=== PATIENT | male | born 1950 | race Caucasian/White ===

== ENCOUNTER 2020-03-20 08:46 | Outpatient (CLI) | payer MEDICARE, SELFPAY ==
--- NOTE | 2020-03-20 13:02 | PFTS_ITS ---
Date of Study:03/20/20 Date of Dictation: MECHANICS: Forced vital capacity (FVC) is normal. Forced expiratory volume in one second (FEV1) is reduced. FEV1/FVC is . FLOW VOLUME LOOP: Reduced flow at all lung volumes with scooping. LUNG VOLUMES: Total lung capacity (TLC) is normal. Residual volume (RV) is normal. DIFFUSING CAPACITY FOR CARBON MONOXIDE: Normal. INTERPRETATION: The pulmonary function tests are consistent with moderate obstruction. Lung volumes are normal. Gas exchange (DLCO) is normal. MTDD
== END 2020-03-20 08:47 | disposition home or self-care (01) ==
LOC: RT 08:53
PROVIDERS: PCP Nurse Practitioner Family; Visit Provider Internal Medicine Cardiovascular Disease
DX: Z79.899 Other long term (current) drug therapy (principal)
CPT/HCPCS: 94010; 94726; 94729

== ENCOUNTER 2021-02-13 17:11 | Emergency (ER) | payer MEDICARE, SELFPAY ==
[2021-02-13 17:24] VITALS: BP 149/111; PULSE 138; RESP 18; TEMP 36.8; O2SAT 99; BMI 24.4
--- NOTE | 2021-02-13 17:39 | XRR_ITS ---
PROCEDURE INFORMATION: Exam: XR Chest Exam date and time: 02/13/2021 5:47 PM Age: 70 years old Clinical indication: Other: Irregular heart rate; Prior surgery; Surgery type: Stent; Additional info: Reduced breath sounds a fib rvr TECHNIQUE: Imaging protocol: XR of the chest. Views: 1 view. COMPARISON: No relevant prior studies available. FINDINGS: Lungs: Unremarkable. No consolidation. Pleural spaces: Unremarkable. No pleural effusion. No pneumothorax. Heart/Mediastinum: The heart size is upper normal. Bones/joints: Degenerative shoulders. XR/XR chest 1V portable [id number] IMPRESSION: 1. No acute findings.
[2021-02-13 18:22] VITALS: BP 133/98; PULSE 115; RESP 17; O2SAT 98
[2021-02-13 18:32] LABS: Basophils # 0.1 10^3/uL (0.0-0.1); Basophils % 0.9 %; Eosinophils # 0.2 10^3/uL (0.0-0.8); Eosinophils % 3.1 %; Hematocrit 39.2 % (42.0-52.0); Hemoglobin 12.4 g/dL (11.7-16.6); Lymphocytes # 2.4 10^3/uL (0.8-4.8); Lymphocytes % 34.6 %; Mean Corpuscular HGB Conc 31.6 g/dL (30.0-36.0); Mean Corpuscular Hemoglobin 27.7 pg (28.0-34.0); Mean Corpuscular Volume 87.7 fL (80-94); Mean Platelet Volume 10.8 fL (7.4-10.4); Monocytes # 0.5 10^3/uL (0.2-0.9); Monocytes % 7.3 %; Neutrophils # 3.69 10^3/uL (1.8-7.7); Nucleated Red Blood Cells % 0 %; Platelet Count 193 10^3/cmm (130-400); Red Blood Count 4.47 10^6/uL (4.1-5.3); Red Cell Distribution Width 15.2 % (12.1-15.1); White Blood Count 6.8 10^3/uL (4.0-10.0)
[2021-02-13 18:43] LABS: D Dimer 0.66 ug/mIFEU (0-0.59)
[2021-02-13 18:54] LABS: Troponin(5th) Baseline 14 ng/L (0-15)
[2021-02-13 19:01] LABS: Alanine Aminotransferase 13 U/L (0-41); Albumin Level 4.2 g/dL (3.5-5.2); Alkaline Phosphatase 60 IU/L (40-130); Aspartate Amino Transferase 12 U/L (0-40); Blood Urea Nitrogen 19 mg/dL (8-23); Calcium 8.9 mg/dL (8.5-10.5); Carbon Dioxide 27 mmol/L (22-29); Chloride 103 mmol/L (98-107); Creatinine Clr Calc Pharmacy 93.5222; Glucose 83 mg/dL (65-115); NT Pro B Type Natriuretic Pept 1941 pg/mL (0-125); Osmolality Calculated 291 mOsm/kg (285-295); Sodium 140 mmol/L (136-145); Total Bilirubin 0.5 mg/dL (0.15-1.2); Total Protein 6.2 g/dL (6.6-8.7)
--- NOTE | 2021-02-13 19:26 | ECG_ITS ---
[facility] Test Date: 2021-02-13 Pat Name: Gabriel Worthy Department: Room: Gender: Male Assignment Clerk: : 1950 Requested By: Robbi Lucero Order Number: [id number] Misti MD: Ashok Kelly M.D. Measurements Intervals [place] Rate: 117 P: TN: QRS: 47 QRSD: 103 T: 39 QT: 316 QTc: 442 Interpretive Statements ATRIAL FIBRILLATION WITH RAPID VENTRICULAR RESPONSE LOW QRS VOLTAGE IN PRECORDIAL LEADS [QRS DEFLECTION < 1.0 mV IN CHEST LEADS] No previous ECG available for comparison Electronically Signed On 02-14-2021 19:00:33 CDT by Ashok Kelly M.D. [id number]
[2021-02-13 19:54] VITALS: PULSE 95; RESP 16; O2SAT 98
--- NOTE | 2021-02-13 19:54 | CTR_ITS ---
PROCEDURE INFORMATION: Exam: CTA Chest With Contrast Exam date and time: 02/13/2021 7:55 PM Age: 70 years old Clinical indication: Abnormal findings; Abnormal diagnostic tests; Elevated d-dimer; Other: High hr and pulse; Prior surgery; Surgery type: Stents; Additional info: A fib rvr, elevated d dimer, cp TECHNIQUE: Imaging protocol: Computed tomographic angiography of the chest with contrast. 3D rendering (Not supervised by radiologist): MIP and/or 3D reconstructed images were created by the technologist. Radiation optimization: All CT scans at this facility use at least one of these dose optimization techniques: automated exposure control; mA and/or kV adjustment per patient size (includes targeted exams where dose is matched to clinical indication); or iterative reconstruction. Contrast material: OMNI 350; Contrast volume: 81 ml; Contrast route: INTRAVENOUS (IV); COMPARISON: CR (CHEST, ) 02/13/2021 5:48 PM RADIATION DOSE METRICS: Total DLP (mGy-cm): 605.89 FINDINGS: Pulmonary arteries: Normal. No pulmonary emboli. Aorta: 4.4 cm aneurysm of the ascending thoracic aorta. No visible dissection, although contrast bolus is suboptimal for evaluating the aorta. Thyroid: 1.6 cm left thyroid nodule. Ultrasound follow-up is recommended. Lungs: Calcified granulomas in the right upper and left lower lobes. 3 mm left upper lobe nodule. Mild atelectasis in the lower lobes. The lungs otherwise are clear. Pleural spaces: Unremarkable. No pneumothorax. No pleural effusion. Heart: Coronary artery calcifications. Mild cardiomegaly. Lymph nodes: Calcified mediastinal and hilar lymph nodes. Gallbladder and bile ducts: Cholelithiasis. Pancreas: Scattered calcifications in the pancreatic body and tail, consistent with chronic calcific pancreatitis. Spleen: Calcified granulomas in the spleen. Kidneys and ureters: Fluid density cysts in the right kidney, Hounsfield units less than 20. No follow-up imaging is recommended. Bones/joints: Unremarkable. No acute fracture. Soft tissues: Unremarkable. CT/CT angio chest PE protcl [id number] IMPRESSION: 1. No evidence for pulmonary embolus. 2. 4.4 cm ascending thoracic aortic aneurysm. 3. 1.6 cm left thyroid nodule. Ultrasound follow-up is recommended. 4. 3 mm left upper lobe nodule. For patients at low risk (minimal or absent history of smoking and of other known risk factors), no routine follow-up is indicated. For patients at high risk (history of smoking or of other known risk factors), consider optional CT Chest at 12 months. (Reference: Jean) References: Jean Jimenez et al. Guidelines for Management of Incidental Pulmonary Nodules Detected on CT Images: From the Fleischner Society 2017. Radiology. 2017;284(1):228-243. COMMENTS: 1. Consistent with the [employer]'s Incidental Findings Committee white paper (J Am Caro Radiol 2015): In patients aged 35 years and older with an incidental thyroid nodule equal to or greater than 1.[address], MRI or extrathyroidal US, further evaluation with dedicated thyroid US is recommended for patients with normal life expectancy and without comorbidities. For smaller nodules without suspicious features, no further evaluation or follow up is recommended. 2. Consistent with the [employer]'s Incidental Findings Committee white paper (J Am Caro Radiol 2018): Any incidental renal lesion less than 1 cm or classified as too small to characterize, or any incidental cystic renal lesion characterized as simple-appearing, is likely benign. No follow-up imaging is recommended for these lesions per consensus recommendations based on imaging criteria. Radiation Dose CTDIVOL = (mGy): DLP = 605.89 (mGy-cm)
[2021-02-13 20:05] LABS: Blood Urine Trace (Negative); Glucose Urine UA Norm (Normal); Ketones Urine 1+ (Negative); Protein Urine Neg (Negative); Specific Gravity, Urine 1.015 (1.005-1.030); Urine Appearance Clear (CLEAR); Urine Color Yellow (Yellow); pH Urine 6.5 (5-7)
[2021-02-13 20:06] LABS: Add Urine Microscopic? YES; Bilirubin Urine Neg (Negative); Leukocyte Esterase Urine Negative (Negative); Nitrate Urine Negative (Negative); RBC Urine 0-4 /hpf (0-2); Urobilinogen Urine 4 mg/dL (Negative)
[2021-02-13] MEDS: iohexol 350 mg/mL 100 mL Btl IV (20:06)
[2021-02-13 20:07] LABS: Add Urine Culture? No; Bacteria Urine 1+ /hpf; Squamous Epithelial Cell Urine 0-4 /hpf (0-5)
[2021-02-13 20:47] LABS: Troponin 5 2HR 16.75 ng/L (0-15); Troponin 5 2HR Delta 2.75 ABS# (0-10)
[2021-02-13 20:53] VITALS: PULSE 85; RESP 14; O2SAT 98
--- NOTE | 2021-02-13 22:50 | ED_ITS ---
HPI - Chest Pain General: Chief Complaint: Chest Pain Stated Complaint: Irregular Pulse/BP, Sent from [facility] Time Seen by Provider: 02/13/21 17:32 History of Present Illness: HPI narrative: The patient is a 70-year-old male with past medical history atrial fibrillation who comes to the ER complaining of increased heart rate for the past 7 to 10 days. He says 2 weeks ago he quit taking his blood pressure medications because his blood pressure was low at 80/40 on one time that he checked it. 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 He comes in today A. fib and RVR with a rate of 120s. He was complaining of chest pain and shortness of breath initially although after rate control his symptoms have resolved. Onset (ago): day(s) (7) Timing of current episode: episodic Onset: during rest and during exertion Pain location: substernal Severity: mild Exacerbating factors: exertion Associated symptoms: Reports palpitations; Deny abdominal pain or dyspnea Review of Systems General: Reports: 10 or more systems reviewed and unremarkable except in HPI and below Const: Denies: fatigue Eyes: Denies: change in vision, blurry vision or eye redness ENMT: Denies: throat pain, swelling of lips/tongue, ear or mastoid pain or nasal congestion Card: Reports: chest pain and palpitations; Denies: irregular heart rhythm, edema, dyspnea on exertion or orthopnea Resp: Denies: dyspnea, productive cough or non-productive cough GI: Denies: abdominal pain, diarrhea or GI cramping : Denies: flank pain, urinary frequency or urinary urgency Musc: Denies: neck pain, back pain, extremity pain, joint pain, joint redness, limited range of motion or muscle weakness Skin/Breast: Denies: rash, pruritus, erythema, skin pain or skin tenderness Neuro: Denies: headache(s), numbness in extremities, weakness in extremities, sensory changes, difficulty walking, dizziness, confusion or Slurred speech present Psych: Denies: anxiety or depression Endo: Denies: polyuria All/Imm: Denies: urticaria, throat swelling or tongue swelling PFSH ED PFSH: Medical History (Updated 02/13/21 @ 22:55 by Tim Ewing MD) Afib CAD (coronary artery disease) Dysuria Gross hematuria Surgical History History of heart artery stent Hx of bilateral cataract extraction Family History Father , AT AGE 69 PROSTATE CANCER Cancer Mother , AT AGE 85 CAD (coronary artery disease) Social History Smoking and tobacco status: former smoker Alcohol intake: current Alcohol intake frequency: holidays/special occasions only Adopted: No Caregiver/support person: No Lives independently: No Household members: spouse Marital status: Current occupational status: retired Physical Exam Const: COMMON NORMALS: no acute distress, average body habitus, patient oriented x3, no limitations, healthy appearing, alert and well nourished GENERAL APPEARANCE: cooperative, comfortable, well kempt and well developed ORIENTATION/CONSCIOUSNESS: Yes awake, Yes oriented to person, Yes oriented to place and Yes oriented to time HENMT: COMMON NORMALS: normocephalic, external ears normal and Normal external nose present HEAD & SCALP: normal to inspection and normocephalic NOSE: Normal external nose present EXTERNAL EAR: Yes external ears normal MOUTH: Normal oral and palatal mucosa present THROAT: posterior oropharynx normal Eye: COMMON NORMALS: Equal, round and reactive pupils present and EOMs intact bilaterally GENERAL EYE: appearance normal, both eyes and all related structures PUPIL: Yes Equal, round and reactive pupils present Neck/C-Spine: COMMON NORMALS: full ROM, no lymphadenopathy, no meningeal signs and no JVD GENERAL: Yes normal visual inspection Lymph: LYMPHATIC: no lymphadenopathy noted Chest: COMMONS NORMALS: normal inspection of the chest and normal palpation of entire chest wall Resp: COMMON NORMALS: normal respiratory effort, No retractions, No use of accessory muscles, clear to auscultation bilaterally and percussion normal EFFORT & INSPECTION: Yes able to speak in complete sentences AUSCULTATION: clear to auscultation bilaterally PERCUSSION: percussion normal Cardio: COMMON NORMALS: no JVD, regular rate, S1 normal heart sound present, S2 normal heart sound present and Peripheral pulses 2+ throughout RATE: regular rate and tachycardic RHYTHM: abnormal rhythm irregularly irregular HEART SOUNDS: S1 normal heart sound present and S2 normal heart sound present PERIPHERAL PULSES: Peripheral pulses 2+ throughout OTHER: A. fib RVR rate 120s. GI: COMMON NORMALS: Normal to inspection, nondistended, normoactive bowel sounds present, Soft to palpation, non-tender and no masses INSPECTION: Yes normal to inspection PALPATION: Yes Soft to palpation : COMMON NORMALS: Yes no CVA tenderness BLADDER/KIDNEY EXAM: Yes no CVA tenderness Back/Pelvis: COMMON NORMALS: no CVA tenderness, thoracic and lumbar spine normal to inspection, no thoracic nor lumbar tenderness and thoraco-lumbar ROM normal Extremity: COMMON NORMALS: normal to inspection, full ROM, capillary refill normal, no joint enlargement and no pedal edema GENERAL: Yes normal exam except as noted Neuro: COMMON NORMALS: patient oriented x3, CN's II-XII intact bilaterally, moves all extremities, no focal motor deficits, no sensory deficits noted and gait normal SENSORIUM/ORIENTATION: Yes alert, Yes oriented to person, Yes oriented to place and Yes oriented to time MENINGEAL SIGNS: Yes no meningeal signs Psych: COMMON NORMALS: mental status grossly normal, Normal thought process present, cooperative, normal affect and speech normal APPEARANCE: Yes well kempt ATTITUDE: Yes calm SPEECH: Yes normal speech THOUGHT PROCESS: Normal thought process present Skin: COMMON NORMALS: no rashes or lesions noted GENERAL SKIN EXAM: no rashes or lesions noted Course Vital Signs: Vital signs: Vital Signs Temperature 98.2 F 02/13/21 17:24 Pulse Rate 85 02/13/21 20:53 Respiratory Rate 14 02/13/21 20:53 Blood Pressure 133/98 02/13/21 18:22 Pulse Oximetry 98 02/13/21 20:53 MDM - Chest Pain MDM Narrative: Medical decision making narrative: The patient came to the ER complaining of tachycardia and he was in A. fib RVR rate 120s. 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 He wants to get set up here locally. I placed a case management referral for cardiology, Dr. Luciano as he has an incidental aortic aneurysm, and primary care physician within a week. He was given metoprolol and Cardizem with good improvement of his rate control and resolution of his symptoms. Discussed with Dr. Kelly who recommended holding his other blood pressure medications as he has been doing however starting the carvedilol at 12.5 mg twice daily and following up in a few days. The patient is amenable to this plan. Also discussed his thyroid nodule and recommended he get an ultrasound from his primary care physician. ER with worsening symptoms at any time. Lab Data: Labs: Lab Results 02/13/21 02/13/21 02/13/21 Range/Units 18:20 18:20 18:20 WBC 6.8 (4.0-10.0) 10^3/ uL RBC 4.47 (4.1-5.3) 10^6/u L Hgb 12.4 (11.7-16.6) g/dL Hct 39.2 L (42.0-52.0) % MCV 87.7 (80-94) fL MCH 27.7 L (28.0-34.0) pg MCHC 31.6 (30.0-36.0) g/dL RDW 15.2 H (12.1-15.1) % Plt Count 193 (130-400) 10^3/c mm MPV 10.8 H (7.4-10.4) fL Neut % (Auto) 54.0 % Lymph % (Auto) 34.6 % Republic % (Auto) 7.3 % Eos % (Auto) 3.1 % Baso % (Auto) 0.9 % Neut # (Auto) 3.69 (1.8-7.7) 10^3/u L Lymph # (Auto) 2.4 (0.8-4.8) 10^3/u L Republic # (Auto) 0.5 (0.2-0.9) 10^3/u L Eos # (Auto) 0.2 (0.0-0.8) 10^3/u L Baso # (Auto) 0.1 (0.0-0.1) 10^3/u L Nucleated RBC % (a uto) 0 % Nucleated RBCs # 0.0 /100WBC D-Dimer (0-0.59) ug/mIFE U Sodium 140 (136-145) mmol/L Potassium 4.0 (3.5-5.1) mmol/L Chloride 103 (98-107) mmol/L Carbon Dioxide 27 (22-29) mmol/L Anion Gap 14.0 (5-19) BUN 19 (8-23) mg/dL Creatinine 0.8 (0.7-1.2) mg/dL GFR Calculation Not Reportable Glucose 83 (65-115) mg/dL Calculated Osmolal ity 291 (285-295) mOsm/k g Calcium 8.9 (8.5-10.5) mg/dL Total Bilirubin 0.5 (0.15-1.2) mg/dL AST 12 (0-40) U/L ALT 13 (0-41) U/L Alkaline Phosphata se 60 (40-130) IU/L Troponin T Baselin e 14 (0-15) ng/L Troponin T 120 Min aleyda (0-15) ng/L Delta Troponin T (0-10) ABS# NT-Pro-B Natriuret Pep 1941 H (0-125) pg/mL Total Protein 6.2 L (6.6-8.7) g/dL Albumin 4.2 (3.5-5.2) g/dL Globulin 2.0 (1.3-4.6) g/dL Urine Color (Yellow) Urine Appearance (CLEAR) Urine pH (5-7) Ur Specific Gravit y (1.005-1.030) Urine Protein (Negative) Urine Glucose (UA) (Normal) Urine Ketones (Negative) Urine Blood (Negative) Urine Nitrate (Negative) Urine Bilirubin (Negative) Urine Urobilinogen (Negative) mg/dL Ur Leukocyte Angela ase (Negative) Urine RBC (0-2) /hpf Urine WBC (0-5) /hpf Ur Squamous Epith Cells (0-5) /hpf Amorphous Sediment Urine Bacteria (NONE) /hpf 02/13/21 02/13/21 02/13/21 Range/Units 18:20 19:48 20:22 WBC (4.0-10.0) 10^3/ uL RBC (4.1-5.3) 10^6/u L Hgb (11.7-16.6) g/dL Hct (42.0-52.0) % MCV (80-94) fL MCH (28.0-34.0) pg MCHC (30.0-36.0) g/dL RDW (12.1-15.1) % Plt Count (130-400) 10^3/c mm MPV (7.4-10.4) fL Neut % (Auto) % Lymph % (Auto) % Republic % (Auto) % Eos % (Auto) % Baso % (Auto) % Neut # (Auto) (1.8-7.7) 10^3/u L Lymph # (Auto) (0.8-4.8) 10^3/u L Republic # (Auto) (0.2-0.9) 10^3/u L Eos # (Auto) (0.0-0.8) 10^3/u L Baso # (Auto) (0.0-0.1) 10^3/u L Nucleated RBC % (a uto) % Nucleated RBCs # /100WBC D-Dimer 0.66 H (0-0.59) ug/mIFE U Sodium (136-145) mmol/L Potassium (3.5-5.1) mmol/L Chloride (98-107) mmol/L Carbon Dioxide (22-29) mmol/L Anion Gap (5-19) BUN (8-23) mg/dL Creatinine (0.7-1.2) mg/dL GFR Calculation Glucose (65-115) mg/dL Calculated Osmolal ity (285-295) mOsm/k g Calcium (8.5-10.5) mg/dL Total Bilirubin (0.15-1.2) mg/dL AST (0-40) U/L ALT (0-41) U/L Alkaline Phosphata se (40-130) IU/L Troponin T Baselin e (0-15) ng/L Troponin T 120 Min aleyda 16.75 H (0-15) ng/L Delta Troponin T 2.75 (0-10) ABS# NT-Pro-B Natriuret Pep (0-125) pg/mL Total Protein (6.6-8.7) g/dL Albumin (3.5-5.2) g/dL Globulin (1.3-4.6) g/dL Urine Color Yellow (Yellow) Urine Appearance Clear (CLEAR) Urine pH 6.5 (5-7) Ur Specific Gravit y 1.015 (1.005-1.030) Urine Protein Neg (Negative) Urine Glucose (UA) Norm (Normal) Urine Ketones 1+ H (Negative) Urine Blood Trace H (Negative) Urine Nitrate Negative (Negative) Urine Bilirubin Neg (Negative) Urine Urobilinogen 4 H (Negative) mg/dL Ur Leukocyte Angela ase Negative (Negative) Urine RBC 0-4 H (0-2) /hpf Urine WBC None (0-5) /hpf Ur Squamous Epith Cells 0-4 H (0-5) /hpf Amorphous Sediment Not Reportable Urine Bacteria 1+ H (NONE) /hpf Discharge Plan Discharge Patient Disposition: Home Clinical Impression: Atrial fibrillation, Aortic aneurysm, Thyroid nodule Condition: Stable Prescriptions: New carvedilol 12.5 mg tablet 12.5 mg PO BID Qty: 30 RF: 0 Held hydrochlorothiazide 25 mg tablet 25 mg PO DAILY RF: 0 Hold Instructions: Resume on 02/27/21. See your primary doctor to discuss resuming this medication lisinopril 20 mg tablet 20 mg PO DAILY@0600 RF: 0 Hold Instructions: Resume on 02/27/21. see your primary doctor to discuss resuming this medication Discontinued carvedilol 25 mg tablet 25 mg PO BID@0600,1800 RF: 0 No Action saw palmetto 500 mg capsule 500 mg PO BID@0600,1800 RF: 0 gabapentin 300 mg capsule 300 mg PO BID@0800,1800 RF: 0 glimepiride 2 mg tablet 2 mg PO BID@0600,1800 RF: 0 levothyroxine 25 mcg capsule 25 mcg PO DAILY@0600 RF: 0 rivaroxaban 20 mg tablet 20 mg PO DAILY@0600 RF: 0 ascorbate calcium (vitamin C) 500 mg tablet 500 mg PO DAILY@0600 RF: 0 cholecalciferol (vitamin D3) 50 mcg (2,000 unit) capsule 50 mcg PO DAILY@0600 RF: 0 metformin 500 mg tablet 500 mg PO DAILY@0600 RF: 0 aspirin [Adult Low Dose Aspirin] 81 mg tablet,delayed release (DR/EC) 81 mg PO DAILY@0600 RF: 0 atorvastatin 40 mg tablet 40 mg PO DAILY@0600 RF: 0 latanoprost 0.005 % drops 1 drp ophthalmic (eye) DAILY RF: 0 Uriniozinc 1 tab PO DAILY@0600 RF: 0 zinc 1 tab PO DAILY@0600 RF: 0 Discharge Orders: Discharge ED (Routine); Ordered 02/13/21 Ordered By: Tim Ewing Referrals: Clotilde Fabian [Primary Care Provider] - Discharge Diet: Advance as tolerated Discharge Activity: Resume usual activity Patient Instructions: Atrial Fibrillation (ED), Opioid Safety Activity Restrictions/Additional Instructions: You have not been taking her blood pressure medications nor carvedilol for the past couple weeks and your heart rate has increased. Please see your medications and only take the carvedilol at a reduced dose. I have placed a case management referral to help you get into a electrician elevator maintenance and primary care physician. Please discuss your blood pressure again at that time and see if you need more medications to control your blood pressure and heart rate. Return to the ER at anytime with increased heart rate, chest pain, or shortness of breath. You also have a thyroid nodule. I have placed a case management referral to help you get an appointment with the above doctors and your primary care doctor because you need an ultrasound of this. Rarely it can be a cancer though it is likely just a nodule. Please follow-up and have this investigated. Also have your primary care doctor check your TSH at that time to make sure your thyroid medication is at appropriate levels within a week. Coding Level of Care Code ED Residence Hall Director for Pricila Crocker
[2021-02-13 22:54] VITALS: BP 149/113; PULSE 94; RESP 15; O2SAT 99
--- NOTE | 2021-02-14 10:04 | DCPLANNER ---
manager web application had message to schedule a couple of follow up appointments for patient. manager web application needs to schedule a follow up appointment for patient with heart care, cardiology and Dr. Luciano. Also a follow up appointment for patient with primary care physician. manager web application spoke with patient, to confirm who he sees for primary care and asked if patient would like for case coordinator to schedule follow up appointment. Patient stated that he has an appointment with his primary care physician today at 1:00. manager web application called [facility], spoke with Maday, gave clinic patients information. A follow up appointment was scheduled for patient with cardiology, Dr. Barnes, for March 05 at 1:[address] Barnes at the [facility]. After this visit patient can see Dr. Barnes at the [facility]. manager web application called patient and gave the patient the appointment information. manager web application also spoke with Maday about a follow up with Dr. Luciano for patient. manager web application was told that patients information would be printed and given to Dr. Quinones nurse, Ann, for review. manager web application will check on appointment, clinic will call patient with appointment information.
--- NOTE | 2021-02-20 11:20 | DCPLANNER ---
Patient has a follow up appointment scheduled for Monday, February 22, 2021 at 8:[address] Luciano. Clinic will call patient with appointment information.
--- NOTE | 2021-04-11 07:42 | DCPLANNER ---
Patient had a follow up appointment scheduled for 03.05.21 and 02.22.21 both at [facility], one with Dr. Butler and one with Dr. Adler - patient attended both appointments.
== END 2021-02-13 22:55 | disposition home or self-care (01) ==
PROVIDERS: Family Medicine; Emergency Provider Family Medicine; PCP Nurse Practitioner Family
DX: I48.91 Unspecified atrial fibrillation (principal); I71.9 Aortic aneurysm of unspecified site, without rupture; E04.1 Nontoxic single thyroid nodule; Z79.82 Long term (current) use of aspirin; Z79.84 Long term (current) use of oral hypoglycemic drugs; I25.10 Atherosclerotic heart disease of native coronary artery without angina pectoris; Z87.891 Personal history of nicotine dependence
CPT/HCPCS: 36415; 71045; 71275; 80048; 80053; 81001; 83880; 84484; 85025; 85378; 93005; 96374; 96375; 99284; J3490; Q9967

== ENCOUNTER 2021-04-08 09:30 | Outpatient (CLI) | payer MEDICARE, SELFPAY ==
--- NOTE | 2021-04-08 10:15 | USCV_ITS ---
Deacon Gabriel Age: 71 Gender: M : 1950 Exam Date: 04/08/2021 10:44 Ordering Phys: Ariel Luciano MD (Andy) ([email or web address]) Technologist: Slava Martines Exam Location: [facility] Indication: DYSPNEA BP: 137 / 102 HR: 95 Rhythm: Sinus Technical Quality: Good MEASUREMENTS (Male / Female) Normal Values 2D ECHO LV Diastolic Diameter PLAX 4.3 cm 4.2 - 5.9 / 3.9 - 5.3 cm LV Systolic Diameter PLAX 2.8 cm IVS Diastolic Thickness 1.3 cm 0.6 - 1.0 / 0.6 - 0.9 cm IVS Systolic Thickness 2.0 cm LVPW Diastolic Thickness 1.0 cm 0.6 - 1.0 / 0.6 - 0.9 cm LVPW Systolic Thickness 1.2 cm LVOT Diameter 2.1 cm LV Ejection Fraction 2D Teich 63.9 % LV Ejection Fraction MOD 2C 38.7 % LV Ejection Fraction 2C AL 39.6 % LA Diameter 3.6 cm LA Width 3.1 cm LA Height 5.9 cm RA Width 4.1 cm RA Height 5.3 cm Aorta at Sinotubular Diameter 3.1 cm M-MODE LV Diastolic Diameter MM 5.4 cm 4.2 - 5.9 / 3.9 - 5.3 cm LV Systolic Diameter MM 3.8 cm LV Ejection Fraction MM Teich 57.2 % IVS Diastolic Thickness MM 1.2 cm 0.6 - 1.0 / 0.6 - 0.9 cm IVS Systolic Thickness MM 1.4 cm LVPW Diastolic Thickness MM 0.8 cm 0.6 - 1.0 / 0.6 - 0.9 cm LVPW Systolic Thickness MM 1.3 cm Aortic Annulus Diameter 3.4 cm LA Ao Ratio MM 1.1 MV E Point Septal Separation 1.0 cm DOPPLER AV Peak Velocity 135.0 cm/s LVOT Peak Velocity 58.0 cm/s AV Area Cont Eq vti 1.9 cm squared AV Area Cont Eq pk 1.4 cm squared MV Peak Velocity 522.0 cm/s MV Area PHT 5.9 cm squared Mitral E to A Ratio 2.0 MV E' Velocity 85.0 cm/s Mitral E to LV E' Septal Ratio 10.6 TR Peak Velocity 201.0 cm/s TR Peak Gradient 16.2 mmHg Right Atrial Pressure 3.0 mmHg Pulmonary Artery Systolic Pressu 19.2 mmHg RV Acceleration Time 0.1 s RV Ejection Time 0.3 s RV AcT/ET 0.3 FINDINGS Left Ventricle Normal left ventricular size, systolic function and wall thickness, with no regional wall motion abnormalities. Left ventricular ejection fraction is estimated at 55-60 %. Rhythm precludes evaluation of diastolic function. Right Ventricle Normal right ventricular size and systolic function. Right ventricular systolic pressure 19.2 mmHg. Right Atrium Normal right atrial size. Right atrial pressure estimated at 3 mmHg. Left Atrium Mildly increased left atrial size. Mitral Valve Mildly thickened mitral valve. No mitral valve stenosis. Mild to moderate mitral valve regurgitation. Aortic Valve Moderately thickened trileaflet aortic valve. No aortic valve stenosis. Trace aortic valve regurgitation. Tricuspid Valve Structurally normal tricuspid valve. Mild tricuspid valve regurgitation. Pulmonic Valve Pulmonic valve not well visualized. No pulmonary valve stenosis. Trace pulmonary valve regurgitation. Pericardium No pericardial effusion. Aorta Normal size aortic root and proximal ascending aorta. Normal- sized inferior vena cava with normal respiratory variation. CONCLUSIONS 1. Normal left ventricular size, systolic function and wall thickness, with no regional wall motion abnormalities. Left ventricular ejection fraction is estimated at 55-60 %. 2. Normal right ventricular size and systolic function. 3. Mild to moderate mitral valve regurgitation. 4. Mildly increased left atrial size. 5. Mild to moderate mitral valve regurgitation. 6. No prior similar studies to compare. Naty Barnes MD (Electronically Signed) Final Date: 10 April 2021 17:40 S
== END 2021-04-08 09:31 | disposition home or self-care (01) ==
PROVIDERS: PCP Nurse Practitioner Family; Visit Provider Thoracic Surgery (Cardiothoracic Vascular Surgery)
DX: R06.00 Dyspnea, unspecified (principal); I51.7 Cardiomegaly; I34.0 Nonrheumatic mitral (valve) insufficiency
CPT/HCPCS: 93306

== ENCOUNTER 2021-04-08 09:33 | Outpatient (CLI) | payer MEDICARE, SELFPAY ==
--- NOTE | 2021-04-08 09:40 | US_ITS ---
WS: [id number] THYROID ULTRASOUND REASON FOR EXAM: THYROID NODULE TECHNIQUE: Grayscale and Doppler ultrasound examination of the thyroid gland. FINDINGS: RIGHT: Right thyroid gland measures 5.5 cm x 1.3 cm x 1.9 cm. Right thyroid volume equals 7.0 ccm3. Small so nolucent lesion approximately 4 mm in diameter. LEFT: Left thyroid gland measures 4.5 cm x 2.6 cm x 2.2 cm. Left thyroid volume equals 13.5 ccm3. Complex m ass, 1.96 x 1.28 x 2.44 cm. This corresponds to the abnormality seen on the CT scan of 02/13/2021. Thyroid isthmus: 0.4 mm. No focal lesions. US/US thyroid [id number] IMPRESSION: Complex mass in the right lobe of the thyroid containing solid and cystic appea ring elements. The lesion has no clearly malignant characteristics and with the patient's age and is most likely benign. However, biopsy would be reasonable.
== END 2021-04-08 09:34 | disposition home or self-care (01) ==
PROVIDERS: PCP Nurse Practitioner Family; Visit Provider Nurse Practitioner Family
DX: E04.1 Nontoxic single thyroid nodule (principal); E07.89 Other specified disorders of thyroid
CPT/HCPCS: 76536

== ENCOUNTER → 2021-09-06 15:36 | Outpatient (BNVA) | payer MEDICARE, SELFPAY | PROVIDERS: PCP Nurse Practitioner Family; Visit Provider Nurse Practitioner Family | DX: R39.9 Unspecified symptoms and signs involving the genitourinary system (principal) | CPT/HCPCS: 81000 ==

== ENCOUNTER 2021-12-26 12:17 | Outpatient (CLI) | payer MEDICARE, SELFPAY ==
--- NOTE | 2021-12-26 12:27 | USCV_ITS ---
Gabriel Worthy Age: 71 Gender: M : 1950 Exam Date: 12/26/2021 12:39 Ordering Phys: Caren Clotilde Johana [employer] XX Technologist: Exam Location: [facility] – [place] Indication: sob BP: 115 / 76 HR: 51 Rhythm: Sinus Technical Quality: Good MEASUREMENTS (Male / Female) Normal Values 2D ECHO LV Diastolic Diameter PLAX 5.5 cm 4.2 - 5.9 / 3.9 - 5.3 cm LV Systolic Diameter PLAX 4.9 cm IVS Diastolic Thickness 1.0 cm 0.6 - 1.0 / 0.6 - 0.9 cm IVS Systolic Thickness 1.1 cm LVPW Diastolic Thickness 0.8 cm 0.6 - 1.0 / 0.6 - 0.9 cm LVPW Systolic Thickness 1.0 cm LVOT Diameter 2.1 cm LV Ejection Fraction 2D Teich 22.4 % LV Ejection Fraction MOD 2C 29.7 % LV Ejection Fraction 2C AL 31.7 % LA Diameter 3.8 cm Aorta at Sinotubular Diameter 2.9 cm M-MODE Aortic Annulus Diameter 4.2 cm LA Ao Ratio MM 0.9 MV E Point Septal Separation 1.8 cm DOPPLER AV Peak Velocity 156.7 cm/s LVOT Peak Velocity 63.0 cm/s AV Area Cont Eq vti 1.6 cm squared AV Area Cont Eq pk 1.4 cm squared MV E' Velocity 3.0 cm/s TR Peak Velocity 271.7 cm/s TR Peak Gradient 29.5 mmHg Right Atrial Pressure 3.0 mmHg Pulmonary Artery Systolic Pressu 32.5 mmHg PV Peak Velocity 70.0 cm/s FINDINGS Left Ventricle Severe diffuse hypokinesia of the left ventricle with ejection fraction around 22%. Mildly increased left ventricular cavity size. Right Ventricle The right ventricle is normal in size and function. Right Atrium Mildly increased right atrial size. Left Atrium Mildly increased left atrial size. Mitral Valve Thickened mitral valve. Moderate eccentric mitral valve regurgitation. Aortic Valve Thickened aortic valve. Possible bicuspid aortic valve. Moderate calcification in the aortic leaflets Tricuspid Valve Moderate tricuspid valve regurgitation. Pulmonic Valve No gross abnormalities noted Pericardium Trivial pericardial effusion. Aorta Normal ascending aorta dimension. CONCLUSIONS Severe diffuse hypokinesia of the left ventricle with ejection fraction around 22%. Mildly increased left ventricular cavity size. Mild biatrial enlargement Normal LV size ejection fraction. Thickened aortic valve. Possible bicuspid aortic valve. Moderate calcification in the aortic leaflets Thickened mitral valve. Moderate eccentric mitral valve regurgitation. There is no pericardial effusion. There are no intracardiac masses. Compared to the study from 04/08/2021, there is a marked decline in the LVEF from fraction from 55 - 60% to 22% Clotilde Fabian's office will be informed about this finding. Dr Armand Encinas MD [facility] (Electronically Signed) Final Date: 26 December 2021 23:57 S
== END 2021-12-26 12:18 | disposition home or self-care (01) ==
LOC: RAD 12:20
PROVIDERS: PCP Nurse Practitioner Family; Visit Provider Nurse Practitioner Family
DX: I50.9 Heart failure, unspecified (principal); R06.01 Orthopnea; R06.02 Shortness of breath; R60.9 Edema, unspecified; I08.0 Rheumatic disorders of both mitral and aortic valves
CPT/HCPCS: 93306

== ENCOUNTER → 2022-02-20 16:53 | Outpatient (BNVA) | payer MEDICARE, SELFPAY | PROVIDERS: PCP Nurse Practitioner Family; Visit Provider Internal Medicine Cardiovascular Disease | DX: I48.91 Unspecified atrial fibrillation (principal); I50.9 Heart failure, unspecified; I25.10 Atherosclerotic heart disease of native coronary artery without angina pectoris; I10 Essential (primary) hypertension; E78.5 Hyperlipidemia, unspecified; I71.2 Thoracic aortic aneurysm, without rupture; E11.9 Type 2 diabetes mellitus without complications | CPT/HCPCS: 85610 ==

== ENCOUNTER → 2022-04-24 09:28 | Outpatient (BNVA) | payer MEDICARE, SELFPAY | PROVIDERS: PCP Nurse Practitioner Family; Visit Provider Internal Medicine Cardiovascular Disease | DX: I50.9 Heart failure, unspecified (principal); I10 Essential (primary) hypertension; E78.5 Hyperlipidemia, unspecified; R06.02 Shortness of breath; I71.2 Thoracic aortic aneurysm, without rupture; I25.10 Atherosclerotic heart disease of native coronary artery without angina pectoris | CPT/HCPCS: 80053; 80061; 83735 ==

== ENCOUNTER 2022-05-15 12:10 | Outpatient (CLI) | payer MEDICARE, SELFPAY ==
[2022-05-15] MEDS: iohexol 350 mg/mL 100 mL Btl IV (12:42)
--- NOTE | 2022-05-15 13:00 | CT_ITS ---
WS: [id number] CTA THORACIC TECHNIQUE: Contrast enhanced CTA of the thoracic aorta with coronal and sagittal reformatted images a nd maximum intensity projection (MIP) images. CLINICAL INFORMATION: thoracic aortic aneurysm COMPARISON: CTA February 13, 2021 DLP: 1211.[address] scans at [facility] use at least one of these dose optimization techniques: automated e xposure control; mA and/or kV adjustment per patient size (includes targeted exams where dose is matc hed to clinical indication); or iterative reconstruction. FINDINGS: Stable ascending thoracic aortic aneurysm today measuring approximately 4.3 cm. Normal caliber descen ding thoracic aorta. Normal caliber aortic arch. Coronary calcification. Cardiomegaly. No mediastinal or hilar lymphadenopathy. Stable 1.5 cm LEFT thyroid nodule. Noncalcified nodule LEFT upper lobe measuring 3 mm is unchanged. Tiny 2 mm nodule RIGHT middle lobe is stable. Slight bibasilar atelectasis. Calcified granuloma RIGHT lower lobe. Tiny subpleural nodule RIGHT lower lobe. A few tiny hazy opacities in the LEFT lateral u pper lobe likely inflammatory. Hypertrophic changes thoracic spine. Prominent central disc osteophyte complex in the mid thoracic sp ine with moderate central canal stenosis. T9-T10. Partially visualized renal cysts. Increased attenuation exophytic lesion RIGHT kidney measuring 12 mm likely hemorrhagic or proteinaceous. This can be followed up with ultrasound. Adrenal glands are nor mal. Normal caliber upper abdominal aorta. Celiac and SMA are patent. CT/CT angio chest [id number] IMPRESSION: 1. Stable ascending thoracic aorta aneurysm measuring 4.3 CM. Normal caliber d escending thoracic aorta. 2. Mild aortic calcification. Coronary calcification. 3. Marked cardiomegaly. 4. A few stable tiny subcentimeter pulmonary nodules similar to the prior stud y. 5. No acute pulmonary infiltrates. No focal pneumonia or pleural fluid. 6. Slight atelectasis in the lung bases. 7. Prominent central disc osteophyte complex in the mid thoracic spine with mo derate central canal stenosis T9-T10 unchanged since CT abdomen pelvis 2018 8. Increased attenuation exophytic lesion RIGHT kidney measuring 12 mm likely hemorrhagic or proteinaceous. This can be followed up with ultrasound.
== END 2022-05-15 12:11 | disposition home or self-care (01) ==
LOC: RAD 12:11
PROVIDERS: PCP Nurse Practitioner Family; Visit Provider Thoracic Surgery (Cardiothoracic Vascular Surgery)
DX: I71.2 Thoracic aortic aneurysm, without rupture (principal); I70.0 Atherosclerosis of aorta; I25.10 Atherosclerotic heart disease of native coronary artery without angina pectoris; I51.7 Cardiomegaly; J98.11 Atelectasis; M25.78 Osteophyte, vertebrae; N28.9 Disorder of kidney and ureter, unspecified
CPT/HCPCS: 71275

== ENCOUNTER 2022-05-15 12:11 | Outpatient (CLI) | payer MEDICARE, SELFPAY ==
--- NOTE | 2022-05-15 14:15 | USCV_ITS ---
Gabriel Worthy Age: 72 Gender: M : 1950 Exam Date: 05/15/2022 12:58 Ordering Phys: Naty Barnes MD ([email or web address]) Technologist: Eugenia Kaminski Exam Location: [facility] – [place], [place] Indication: Shortness of breath BP: 126 / 95 HR: 84 Rhythm: Atrial fibrillation Technical Quality: Adequate MEASUREMENTS (Male / Female) Normal Values 2D ECHO LV Diastolic Diameter PLAX 5.1 cm 4.2 - 5.9 / 3.9 - 5.3 cm LV Systolic Diameter PLAX 4.0 cm IVS Diastolic Thickness 1.4 cm 0.6 - 1.0 / 0.6 - 0.9 cm IVS Systolic Thickness 1.4 cm LVPW Diastolic Thickness 0.9 cm 0.6 - 1.0 / 0.6 - 0.9 cm LVPW Systolic Thickness 1.4 cm LVOT Diameter 2.4 cm LV Ejection Fraction 2D Teich 43.2 % LV Ejection Fraction MOD 2C 45.7 % LV Ejection Fraction 2C AL 46.8 % LA Diameter 3.4 cm LA Width 3.6 cm LA Height 6.5 cm RA Width 4.5 cm RA Height 6.2 cm Aorta at Sinotubular Diameter 4.0 cm IVC Diameter 2.0 cm M-MODE MV E Point Septal Separation 1.9 cm FINDINGS Left Ventricle Normal left ventricular size and wall thickness. Moderately decreased left ventricular systolic function. Left ventricular ejection fraction is estimated at 35 % visually and 42% by modified biplane method. Moderate global hypokinesis. Right Ventricle Normal right ventricular size and systolic function. Right Atrium Normal right atrial size. Left Atrium Mildly increased left atrial size. Mitral Valve Structurally normal mitral valve. Aortic Valve Mildly thickened trileaflet aortic valve. Tricuspid Valve Structurally normal tricuspid valve. Pulmonic Valve Pulmonic valve not well visualized. Pericardium No pericardial effusion. Aorta Mild dilated aortic root measured at 42 mm. Ascending aorta measured at 40 mm. IVC Normal IVC dimension with >50% respiratory change of the inferior vena cava. CONCLUSIONS 1. Normal left ventricular size and wall thickness. Moderately decreased left ventricular systolic function. Left ventricular ejection fraction is estimated at 35 % visually and 42% by modified biplane method. Moderate global hypokinesis. 2. Normal right ventricular size and systolic function. 3. When compared to previous echocardiogram dated 12/13/2021, left ventricular systolic function has increased from 22% then. Naty Barnes MD (Electronically Signed) Final Date: 19 May 2022 14:43 S
== END 2022-05-15 12:12 | disposition home or self-care (01) ==
LOC: RAD 12:11
PROVIDERS: PCP Nurse Practitioner Family; Visit Provider Internal Medicine Cardiovascular Disease
DX: R06.02 Shortness of breath (principal); I48.91 Unspecified atrial fibrillation
CPT/HCPCS: 93308

== ENCOUNTER → 2022-08-22 10:09 | Outpatient (BNVA) | payer MEDICARE, SELFPAY | PROVIDERS: PCP Nurse Practitioner Family; Visit Provider Internal Medicine Cardiovascular Disease | DX: M25.462 Effusion, left knee (principal) | CPT/HCPCS: 73562 ==

== ENCOUNTER → 2022-09-22 11:14 | Outpatient (BNVA) | payer MEDICARE, SELFPAY | PROVIDERS: PCP Nurse Practitioner Family; Visit Provider Internal Medicine Cardiovascular Disease | DX: I48.91 Unspecified atrial fibrillation (principal); I50.9 Heart failure, unspecified; Z79.01 Long term (current) use of anticoagulants | CPT/HCPCS: 85610 ==

== ENCOUNTER → 2022-10-23 13:44 | Outpatient (BNVA) | payer MEDICARE, SELFPAY | PROVIDERS: PCP Nurse Practitioner Family; Visit Provider Internal Medicine Cardiovascular Disease | DX: I48.91 Unspecified atrial fibrillation (principal); I50.9 Heart failure, unspecified | CPT/HCPCS: 85610 ==

== ENCOUNTER → 2022-11-20 16:41 | Outpatient (BNVA) | payer MEDICARE, SELFPAY | PROVIDERS: PCP Nurse Practitioner Family; Visit Provider Internal Medicine Cardiovascular Disease | DX: I50.9 Heart failure, unspecified (principal) | CPT/HCPCS: 85610 ==

== ENCOUNTER → 2022-12-22 11:06 | Outpatient (BNVA) | payer MEDICARE, SELFPAY | PROVIDERS: PCP Nurse Practitioner Family; Visit Provider Internal Medicine Cardiovascular Disease | DX: I50.9 Heart failure, unspecified (principal) | CPT/HCPCS: 85610 ==

== ENCOUNTER → 2023-01-20 10:06 | Outpatient (BNVA) | payer MEDICARE, SELFPAY | PROVIDERS: PCP Nurse Practitioner Family; Visit Provider Internal Medicine Cardiovascular Disease | DX: I48.91 Unspecified atrial fibrillation (principal) | CPT/HCPCS: 85610 ==

== ENCOUNTER → 2023-02-19 13:55 | Outpatient (BNVA) | payer MEDICARE, SELFPAY | PROVIDERS: PCP Nurse Practitioner Family; Visit Provider Internal Medicine Cardiovascular Disease | DX: I50.9 Heart failure, unspecified (principal) | CPT/HCPCS: 85610 ==

== ENCOUNTER → 2023-03-26 09:43 | Outpatient (BNVA) | payer MEDICARE, SELFPAY | PROVIDERS: PCP Nurse Practitioner Family; Visit Provider Internal Medicine Cardiovascular Disease | DX: Z79.01 Long term (current) use of anticoagulants (principal) | CPT/HCPCS: 85610 ==

== ENCOUNTER → 2023-04-23 14:13 | Outpatient (BNVA) | payer MEDICARE, SELFPAY | PROVIDERS: PCP Nurse Practitioner Family; Visit Provider Internal Medicine Cardiovascular Disease | DX: D69.9 Hemorrhagic condition, unspecified (principal) | CPT/HCPCS: 85610 ==

== ENCOUNTER → 2023-05-28 09:37 | Outpatient (BNVA) | payer MEDICARE, SELFPAY | PROVIDERS: PCP Nurse Practitioner Family; Visit Provider Internal Medicine Cardiovascular Disease | DX: I50.9 Heart failure, unspecified (principal) | CPT/HCPCS: 85610 ==

== ENCOUNTER → 2023-06-04 08:54 | Outpatient (BNVA) | payer MEDICARE, SELFPAY | PROVIDERS: PCP Nurse Practitioner Family; Referring Provider Internal Medicine Cardiovascular Disease; Visit Provider Internal Medicine Cardiovascular Disease | DX: I50.9 Heart failure, unspecified (principal) | CPT/HCPCS: 85610 ==

== ENCOUNTER → 2023-06-11 08:22 | Outpatient (BNVA) | payer MEDICARE, SELFPAY | PROVIDERS: PCP Nurse Practitioner Family; Referring Provider Internal Medicine Cardiovascular Disease; Visit Provider Internal Medicine Cardiovascular Disease | DX: I25.10 Atherosclerotic heart disease of native coronary artery without angina pectoris (principal); I50.9 Heart failure, unspecified | CPT/HCPCS: 85610 ==

== ENCOUNTER → 2023-07-09 09:12 | Outpatient (BNVA) | payer MEDICARE, SELFPAY | PROVIDERS: PCP Nurse Practitioner Family; Referring Provider Internal Medicine Cardiovascular Disease; Visit Provider Internal Medicine Cardiovascular Disease | DX: I50.9 Heart failure, unspecified (principal) | CPT/HCPCS: 85610 ==

== ENCOUNTER → 2023-08-17 09:06 | Outpatient (BNVA) | payer MEDICARE, SELFPAY | PROVIDERS: PCP Nurse Practitioner Family; Visit Provider Dermatology | DX: C44.329 Squamous cell carcinoma of skin of other parts of face (principal) | CPT/HCPCS: 13132; 17311 ==

== ENCOUNTER → 2024-05-15 14:39 | Outpatient (BNVA) | payer MEDICARE, SELFPAY | PROVIDERS: PCP Nurse Practitioner Family; Visit Provider Registered Nurse Neonatal Intensive Care | DX: R10.9 Unspecified abdominal pain (principal) | CPT/HCPCS: 81000 ==

== ENCOUNTER 2024-07-29 13:00 | Outpatient (CLI) | payer MEDICARE, SELFPAY ==
--- NOTE | 2024-07-29 13:10 | USR_ITS ---
PROCEDURE INFORMATION: Exam: US Retroperitoneal, Complete, Kidneys and Bladder Exam date and time: 07/29/2024 2:05 PM Age: 74 years old Clinical indication: Condition or disease; Kidney or ureter condition; Cyst of kidney TECHNIQUE: Imaging protocol: Real-time ultrasound of the retroperitoneum with image documentation. Complete exam focused on the bilateral kidneys and urinary bladder. COMPARISON: CT abdomen pelvis wo/w [id number] 08/09/2019 9:51 AM FINDINGS: Right kidney: There are several simple right renal cysts, the largest of which arising from the medial upper pole of the right kidney measures 3.2 x 2.6 x 3.3 cm. No hydronephrosis. No stones Left kidney: Normal. No stones. No hydronephrosis. Urinary bladder: The bladder is incompletely distended. Prostate: The prostate gland is enlarged with a volume of 76 mL. US/US renal BI* [id number] IMPRESSION: 1. No evidence of hydronephrosis. 2. Multiple simple right renal cysts. 3. Prostatomegaly
== END 2024-07-29 13:01 | disposition home or self-care (01) ==
LOC: RAD 13:05
PROVIDERS: PCP Nurse Practitioner Family; Visit Provider Nurse Practitioner Family
DX: Q61.02 Congenital multiple renal cysts (principal); N40.0 Benign prostatic hyperplasia without lower urinary tract symptoms
CPT/HCPCS: 76770